=== PATIENT | female | born 1995 | race African-American/Black ===

== ENCOUNTER 2022-01-31 23:56 | Inpatient (IN) ==
[2022-02-01] MEDS ORDERED: miSOPROStoL 200 MCG TABLET RECTAL PRN (00:08)
[2022-02-01] MEDS ORDERED: LACTATED RINGERS 250 ML IV ONE (00:08)
[2022-02-01] MEDS ORDERED: BUTORPHANOL 1 MG/ML VIAL IV PRN (00:08)
[2022-02-01] MEDS ORDERED: METHYLERGONOVINE 0.2 MG/1 ML AMP IM PRN (00:08)
[2022-02-01] MEDS ORDERED: TRANEXAMIC ACID 1,000 MG in SODIUM CHLORIDE 0.9% 100 ML IV PRN (00:08)
[2022-02-01] MEDS ORDERED: OXYTOCIN/LR 20 UNIT/1,000 ML BAG IV ONE ×2 (00:08→13:02)
[2022-02-01] MEDS ORDERED: LACTATED RINGERS 500 ML IV PRN (00:08)
[2022-02-01] MEDS ORDERED: ONDANSETRON 4 MG/2 ML VIAL IV PRN (00:08)
[2022-02-01] MEDS ORDERED: CARBOPROST TROMETHAMINE 250 MCG/ML AMP IM PRN (00:08)
[2022-02-01] MEDS ORDERED: MEPERIDINE 50 MG/1 ML VIAL IV PRN (00:29)
[2022-02-01 00:49] LABS: Basophils % 0.1 % (0.0-0.8); Hematocrit 29.1 VOL% (35.7-47.0); Hemoglobin 9.1 GM/DL (12.0-16.0); Immature Granulocytes % 0.1 %; Immature Granulocytes Absolute 0.01 #; Lymphocytes # 2.1 10*3/uL (1.4-4.0); Lymphocytes % 29.5 % (21.3-54.2); Mean Corpuscular HGB Conc 31.3 GM/DL (32-36); Mean Corpuscular Volume 87.7 FL (87-102); Mean Platelet Volume 9.4 FL (9.6-12.0); Monocytes # 0.6 10*3/uL (0.11-0.8); Neutrophils % 61.3 % (38.7-73.9); Platelet Count 321 T/CUMM (130-400); Red Blood Count 3.32 MC/CUMM (3.8-5.5); Red Cell Distribution Width 14.9 % (9.3-17.3)
[2022-02-01] MEDS: LACTATED RINGERS 1,000 ML IV SCH ×2 (01:17→08:55)
[2022-02-01] MEDS: OXYTOCIN/LR 20 UNIT/1,000 ML BAG IV SCH ×2 (05:50→15:21)
[2022-02-01] MEDS ORDERED: hydrOXYzine HCL 25 MG/1 ML VIAL IM PRN (08:40)
[2022-02-01] MEDS ORDERED: FAMOTIDINE 20 MG/2 ML VIAL IV ONE (08:40)
[2022-02-01] MEDS ORDERED: PROMETHAZINE 25 MG/1 ML VIAL IM PRN (08:40)
[2022-02-01] MEDS ORDERED: NALOXONE 0.4 MG/ML VIAL IV PRN (08:40)
[2022-02-01] MEDS ORDERED: diphenhydrAMINE 50 MG/1 ML VIAL IV PRN ×2 (08:40)
[2022-02-01] MEDS ORDERED: ePHEDrine 50 MG/ML VIAL IV PRN (08:40)
[2022-02-01] MEDS ORDERED: CITRIC ACID/SODIUM CITRATE 30 ML UDCUP PO ONE (08:40)
[2022-02-01] MEDS ORDERED: fentaNYL 2 MCG/ROPIV 0.2% EPID 100 ML EPIDURAL SCH (09:00)
[2022-02-01] MEDS ORDERED: miSOPROStoL 200 MCG TABLET ONE (13:01)
[2022-02-01] MEDS ORDERED: TRANEXAMIC ACID 1,000 MG/10 ML VIAL ONE (13:02)
[2022-02-01] MEDS ORDERED: CARBOPROST TROMETHAMINE 250 MCG/ML AMP IM ONE (13:02)
[2022-02-01] MEDS ORDERED: SODIUM CHLORIDE 0.9% 0 ML IV ONE (13:02)
[2022-02-01] MEDS ORDERED: METHYLERGONOVINE 0.2 MG/1 ML AMP ONE (13:02)
[2022-02-01 14:12] LABS: Cord Arterial Blood HCO3 20.4 MMOL/L
[2022-02-01 14:14] LABS: Cord Venous Blood HCO3 22.1 MMOL/L; Cord Venous Blood PCO2 43.4 MMHG; Cord Venous Blood PO2 34.4
[2022-02-01] MEDS ORDERED: ACETAMINOPHEN 500 MG TABLET PO PRN ×2 (19:35→19:36)
[2022-02-01] MEDS: DOCUSATE SODIUM 100 MG CAPSULE PO SCH (21:18)
[2022-02-01] MEDS: IBUPROFEN 800 MG TABLET PO PRN (21:30)
[2022-02-02 07:16] LABS: Basophils % 0.3 % (0.0-0.8); Eosinophils % 0.3 % (0.00-10.9); Hematocrit 26.6 VOL% (35.7-47.0); Hemoglobin 8.3 GM/DL (12.0-16.0); Immature Granulocytes % 0.4 %; Immature Granulocytes Absolute 0.03 #; Lymphocytes % 26.6 % (21.3-54.2); Mean Corpuscular HGB Conc 31.2 GM/DL (32-36); Mean Corpuscular Volume 87.5 FL (87-102); Mean Platelet Volume 9.2 FL (9.6-12.0); Monocytes # 0.6 10*3/uL (0.11-0.8); Monocytes % 7.8 % (1.7-12.7); Neutrophils % 64.6 % (38.7-73.9); Platelet Count 284 T/CUMM (130-400); Red Blood Count 3.04 MC/CUMM (3.8-5.5); White Blood Count 7.5 T/CUMM (4-12)
[2022-02-02] MEDS ORDERED: MAGNESIUM HYDROXIDE SUSP 30 ML UDCUP PO PRN (08:43)
[2022-02-02] MEDS ORDERED: BISACODYL 10 MG SUPP RECTAL PRN (08:43)
[2022-02-02] MEDS ORDERED: BENZOCAINE 20%/MENTHOL 0.5% SPRAY 56 GM CAN TOP PRN (08:45)
[2022-02-02] MEDS: IRON (CARBONYL)/VIT C/B12/FA TABLET PO SCH (09:25)
[2022-02-02] MEDS: DOCUSATE SODIUM 100 MG CAPSULE PO SCH ×2 (09:25→19:25)
[2022-02-03] MEDS: DOCUSATE SODIUM 100 MG CAPSULE PO SCH ×2 (01:28→10:57)
[2022-02-03] MEDS: IBUPROFEN 800 MG TABLET PO PRN (03:12)
[2022-02-03 07:31] VITALS: BP 131/86
[2022-02-03] MEDS: IRON (CARBONYL)/VIT C/B12/FA TABLET PO SCH (10:57)
[2022-02-03] MEDS ORDERED: MULTIVITAMIN (PRENATAL) TABLET PO SCH (11:00)
== END 2022-02-03 11:30 | disposition home or self-care (01) | DRG 560 ==
LOC: N.LD 23:56 → N.OB 02-01 17:23
PROVIDERS: ADMIT Obstetrics & Gynecology; ATTEND Nurse Practitioner